=== PATIENT | male | born 1990 | race African-American/Black ===

== ENCOUNTER 2018-02-27 08:15 | Emergency (ER) | payer SELFPAY ==
[2018-02-27] MEDS ORDERED: ONDANSETRON 4 MG (ODT) TAB ONE (08:44)
[2018-02-27] MEDS ORDERED: IBUPROFEN 400 MG TAB ONE (08:44)
--- NOTE | 2018-02-27 09:49 | EDPHYS ---
Physician Documentation [facility] Name: Alexandra Monroy Age: 28 yrs Sex: Male : 1990 Arrival Date: 02/27/2018 Time: 08:19 Bed 15 Private MD: None, None ED Physician Denis Castellano HPI: 02/27 08:34 This 28 yrs old Black Male presents to ER via Ambulatory with complaints of Abdominal cp Pain, Nausea/Vomiting, Fever. 08:34 The patient presents with sore throat. cp 08:34 The patient describes throat pain as constant. cp 08:34 Onset: The symptoms/episode began/occurred 2 day(s) ago. cp 08:34 Severity of symptoms: in the emergency department the symptoms are unchanged, despite cp home interventions. Associated signs and symptoms: Pertinent positives: fever, nausea, Sore throat vomiting, abdominal pain. Historical: - Allergies: 08:25 No Known Allergies; ss - Home Meds: 08:25 None [Active]; ss - PMHx: 08:25 None; ss - PSHx: 08:25 None; ss - Immunization history:: Adult Immunizations up to date. - Social history:: Smoking status: Patient/guardian denies using tobacco. - Ebola Screening: : Patient denies exposure to infectious person Patient denies travel to an Ebola-affected area in the 21 days before illness onset. ROS: 08:37 Constitutional: Negative for body aches, chills, fever, poor PO intake. cp 08:37 Eyes: Negative for injury, pain, redness, and discharge. cp 08:37 ENT: Positive for sore throat, Negative for drainage from ear(s), ear pain, rhinorrhea, difficulty swallowing, difficulty handling secretions. 08:37 Neck: Negative for pain with movement, pain at rest, stiffness. 08:37 Cardiovascular: Negative for chest pain. 08:37 Respiratory: Negative for cough, wheezing. 08:37 Abdomen/GI: Positive for abdominal pain, nausea and vomiting, Negative for diarrhea, constipation, black/tarry stool, rectal bleeding. 08:37 Back: Negative for pain at rest, pain with movement, radiated pain. 08:37 : Negative for urinary symptoms. 08:37 Skin: Negative for cellulitis, rash. 08:37 Neuro: Negative for altered mental status, weakness. 08:37 All other systems are negative. Exam: 08:42 Constitutional: The patient appears in no acute distress, alert, awake, non-toxic, well cp developed, well nourished. 08:42 Head/Face: Normocephalic, atraumatic. cp 08:42 Eyes: Periorbital structures: appear normal, Pupils: equal, round, and reactive to light and accomodation, Extraocular movements: intact throughout, Conjunctiva: normal, no exudate, no injection, Sclera: no appreciated abnormality, Lids and lashes: appear normal, bilaterally. 08:42 ENT: External ear(s): are unremarkable, Ear canal(s): are normal, clear, TM's: bulging, is not appreciated, bilaterally, dullness, bilaterally, erythema, is not appreciated, bilaterally, Nose: is normal, Mouth: Lips: moist, Oral mucosa: moist, Posterior pharynx: Airway: no evidence of obstruction, patent, Tonsils: bilaterally enlarged, with erythema, with exudate, Uvula: midline, swelling, is not appreciated, erythema, that is mild. 08:42 Neck: ROM/movement: is normal, is supple, without pain, no range of motions limitations, no meningismus, no nuchal rigidity, Lymph nodes: lymphadenopathy is appreciated, anterior cervical nodes. 08:42 Chest/axilla: Inspection: normal, Palpation: is normal, no crepitus, no tenderness. 08:42 Cardiovascular: Rate: normal, Rhythm: regular. 08:42 Respiratory: the patient does not display signs of respiratory distress, Respirations: normal, no use of accessory muscles, no retractions, no splinting, no tachypnea, labored breathing, is not present, Breath sounds: are clear throughout, no decreased breath sounds, no stridor, no wheezing. 08:42 Abdomen/GI: Inspection: abdomen appears normal, Bowel sounds: active, all quadrants, Palpation: soft, in all quadrants, mild abdominal tenderness, in the epigastric area, rebound tenderness, is not appreciated, voluntary guarding, is not appreciated, involuntary guarding, is not appreciated. 08:42 Back: pain, is absent, ROM is normal. 08:42 Skin: cellulitis, is not appreciated, no rash present. 08:42 Neuro: Orientation: to person, place \T\ time. Mentation: lucid, able to follow commands. Vital Signs: 08:25 BP 117 / 72; Pulse 99; Resp 15; Temp 99.2(O); Pulse Ox 97% on R/A; Weight 72.57 kg; ss Height 5 ft. 5 in. (165.10 cm); Pain 5/10; 09:48 BP 96 / 77; Pulse 97; Resp 17; Pulse Ox 97% on R/A; mh5 09:55 BP 110 / 65; Pulse 89; Resp 17; Pulse Ox 96% on R/A; Pain 2/10; rb1 08:25 Body Mass Index 26.63 (72.57 kg, 165.10 cm) ss MDM: 08:21 Patient medically screened. cp 09:47 Data reviewed: vital signs, nurses notes, lab test result(s), and as a result, I will cp discharge patient. 09:47 Differential diagnosis: apthous ulcer, group A strep tonsillitis, laryngitis, niki's cp angina, peritonsillar abscess pharyngitis, retropharyngeal abcess. Counseling: I had a detailed discussion with the patient and/or guardian regarding: the historical points, exam findings, and any diagnostic results supporting the discharge/admit diagnosis, to return to the emergency department if symptoms worsen or persist or if there are any questions or concerns that arise at home. Response to treatment: the patient's symptoms have markedly improved after treatment, VSS. Nausea and pain improved. No vomiting observed in ED, and as a result, I will discharge patient. 02/27 08:34 Order name: Strep; Complete Time: 09:53 cp 02/27 09:53 Interpretation: Reviewed. cp Administered Medications: 08:42 Drug: Zofran 4 mg Route: PO; rb1 09:10 Follow up: Response: No adverse reaction; Nausea is decreased rb1 08:42 Drug: Ibuprofen 800 mg Route: PO; rb1 09:10 Follow up: Response: No adverse reaction; Pain is decreased rb1 09:49 Drug: Augmentin 875 mg Route: PO; rb1 09:55 Follow up: Response: No adverse reaction; Medication administered at discharge. rb1 Disposition: 11:23 Co-signature as Attending Physician, Denis Castellano MD I agree with the assessment and kdr plan of care. Disposition: 02/27/18 09:48 Discharged to Home. Impression: Streptococcal tonsillitis, Nausea and vomiting. - Condition is Stable. - Discharge Instructions: Nausea and Vomiting, Adult, Tonsillitis. - Prescriptions for Augmentin 875- 125 mg Oral Tablet - take 1 tablet by ORAL route every 12 hours for 10 days; 20 tablet. Zofran 4 mg Oral Tablet - take 1 tablet by ORAL route every 12 hours As needed; 20 tablet. Ibuprofen 800 mg Oral Tablet - take 1 tablet by ORAL route every 8 hours As needed take with food; 30 tablet. - Medication Reconciliation Form, Thank You Letter, Antibiotic Education, Prescription Opioid Use form. - Follow up: Private Physician; When: 48 Hours; Reason: Recheck today's complaints. - Problem is new. - Symptoms have improved. Signatures: Dispatcher [employer] EDMS Denis Castellano MD MD kdr Carey Hall RN RN ss Hank Venegas PA PA Marie Tovar RN RN rb1 Corrections: (The following items were deleted from the chart) 09:56 09:48 02/27/2018 09:48 Discharged to Home. Impression: Streptococcal tonsillitis; rb1 Nausea and vomiting. Condition is Stable. Forms are Medication Reconciliation Form, Thank You Letter, Antibiotic Education, Prescription Opioid Use. Follow up: Private Physician; When: 48 Hours; Reason: Recheck today's complaints. Problem is new. Symptoms have improved. cp 23:02/26 08:40 Constitutional: The patient appears in no acute distress, alert, awake, cp non-toxic, well developed, well nourished, cp 02/27 23:02/26 08:40 Head/Face: Normocephalic, atraumatic. cp cp 02/27 23:02/26 08:40 Eyes: Periorbital structures: appear normal, Conjunctiva: normal, no cp exudate, no injection, Sclera: no appreciated abnormality, Lids and lashes: appear normal, bilaterally, cp / 23:26 02/26 08:40 ENT: External ear(s): are unremarkable, Ear canal(s): are normal, clear, cp TM's: bulging, is not appreciated, bilaterally, dullness, bilaterally, erythema, is not appreciated, bilaterally, Nose: is normal, Mouth: Lips: moist, Oral mucosa: moist, Posterior pharynx: Airway: no evidence of obstruction, patent, Tonsils: bilaterally enlarged, with erythema, with exudate, Uvula: midline, swelling, is not appreciated, erythema, that is mild, Voice: is normal, cp 02/27 23:02/26 08:40 Neck: ROM/movement: is normal, is supple, without pain, no range of motions cp limitations, no meningismus, no nuchal rigidity, Lymph nodes: lymphadenopathy is appreciated, anterior cervical nodes, cp 02/27 23:02/26 08:40 Chest/axilla: Inspection: normal, Palpation: is normal, no crepitus, no cp tenderness, cp 02/27 23:02/26 08:40 Cardiovascular: Rate: normal, Rhythm: regular, cp cp 02/27 23:02/26 08:40 Respiratory: the patient does not display signs of respiratory distress, cp Respirations: normal, no use of accessory muscles, no retractions, no splinting, no tachypnea, labored breathing, is not present, Breath sounds: are clear throughout, no decreased breath sounds, no stridor, no wheezing, cp 02/27 23:02/26 08:40 Abdomen/GI: Inspection: abdomen appears normal, Bowel sounds: active, all cp quadrants, Palpation: soft, in all quadrants, mild abdominal tenderness, in the epigastric area, rebound tenderness, is not appreciated, voluntary guarding, is not appreciated, involuntary guarding, is not appreciated, cp 02/27 23:02/26 08:40 Back: pain, is absent, ROM is normal, cp cp 02/27 23:02/26 08:40 Skin: cellulitis, is not appreciated, no rash present. cp cp 02/27 23:02/26 08:40 Neuro: Orientation: to person, place \T\ time. Mentation: is normal, cp cp
--- NOTE | 2018-02-27 09:49 | ER ---
Nurse's Notes [facility] Name: Alexandra Monroy Age: 28 yrs Sex: Male : 1990 Arrival Date: 02/27/2018 Time: 08:19 Bed 15 Private MD: None, None Diagnosis: Streptococcal tonsillitis;Nausea and vomiting Presentation: 02/27 08:24 Presenting complaint: Patient states: sore throat, N/V and fever x 2 days. Transition ss of care: patient was not received from another setting of care. Onset of symptoms was February 25, 2018. Risk Assessment: Do you want to hurt yourself or someone else? Patient reports no desire to harm self or others. Initial Sepsis Screen: Does the patient meet any 2 criteria? No. Patient's initial sepsis screen is negative. Does the patient have a suspected source of infection? No. Patient's initial sepsis screen is negative. Care prior to arrival: None. 08:24 Method Of Arrival: Ambulatory ss 08:24 Acuity: CHARLA 4 ss Historical: - Allergies: 08:25 No Known Allergies; ss - Home Meds: 08:25 None [Active]; ss - PMHx: 08:25 None; ss - PSHx: 08:25 None; ss - Immunization history:: Adult Immunizations up to date. - Social history:: Smoking status: Patient/guardian denies using tobacco. - Ebola Screening: : Patient denies exposure to infectious person Patient denies travel to an Ebola-affected area in the 21 days before illness onset. Screenin:27 Abuse screen: Denies threats or abuse. Nutritional screening: No deficits noted. rb1 Tuberculosis screening: No symptoms or risk factors identified. Fall Risk None identified. Assessment: 08:27 General: Appears in no apparent distress. comfortable, Behavior is calm, cooperative, rb1 Reports fever for 1-2 days. Pain: Complains of pain in abdomen Pain currently is 4 out of 10 on a pain scale. Quality of pain is described as pain started after the pt. vomited. Neuro: Level of Consciousness is awake, alert, obeys commands, Oriented to person, place, time, situation. Cardiovascular: Capillary refill < 3 seconds is brisk in bilateral fingers. Respiratory: Airway is patent Respiratory effort is even, unlabored, Respiratory pattern is regular, symmetrical. GI: Bowel sounds present X 4 quads. Abd is soft X 4 quads Reports diarrhea, nausea, vomiting, since x 2 days. : No signs and/or symptoms were reported regarding the genitourinary system. Derm: Skin is dry, Skin is normal, Skin temperature is warm. 09:25 Reassessment: Patient appears in no apparent distress at this time. No changes from rb1 previously documented assessment. Vital Signs: 08:25 BP 117 / 72; Pulse 99; Resp 15; Temp 99.2(O); Pulse Ox 97% on R/A; Weight 72.57 kg; ss Height 5 ft. 5 in. (165.10 cm); Pain 5/10; 09:48 BP 96 / 77; Pulse 97; Resp 17; Pulse Ox 97% on R/A; mh5 09:55 BP 110 / 65; Pulse 89; Resp 17; Pulse Ox 96% on R/A; Pain 2/10; rb1 08:25 Body Mass Index 26.63 (72.57 kg, 165.10 cm) ED Course: 08:19 Patient arrived in ED. sb2 08:20 None, None is Private Physician. sb2 08:21 Hank Venegas PA is PHCP. cp 08:21 Denis Castellano MD is Attending Physician. cp 08:25 Triage completed. ss 08:25 Arm band placed on right wrist. ss 08:27 Marie Paige, RN is Primary Nurse. rb1 08:27 Patient has correct armband on for positive identification. Bed in low position. Call rb1 light in reach. Side rails up X 1. Pulse ox on. NIBP on. 08:42 Strep Sent. rb1 09:55 No provider procedures requiring assistance completed. Patient did not have IV access rb1 during this emergency room visit. Administered Medications: 08:42 Drug: Zofran 4 mg Route: PO; rb1 09:10 Follow up: Response: No adverse reaction; Nausea is decreased rb1 08:42 Drug: Ibuprofen 800 mg Route: PO; rb1 09:10 Follow up: Response: No adverse reaction; Pain is decreased rb1 09:49 Drug: Augmentin 875 mg Route: PO; rb1 09:55 Follow up: Response: No adverse reaction; Medication administered at discharge. rb1 Outcome: 09:48 Discharge ordered by . cp 09:55 Discharged to home ambulatory, with family. rb1 09:55 Condition: stable 09:55 Discharge instructions given to patient, Instructed on discharge instructions, follow up and referral plans. medication usage, Demonstrated understanding of instructions, follow-up care, medications, Prescriptions given X 3. 09:56 Patient left the ED. rb1 Signatures: Carey Hall, RN RN ss Hank Venegas PA PA cp Barber, Rebecca, RN RN rb1 [facility] Judy Weiss [facility]
[2018-02-27] MEDS ORDERED: AMOX/K CLAV 875 MG TAB ONE (09:51)
== END 2018-02-27 09:56 | disposition home or self-care (01) ==
LOC: ER 08:15
DX: J03.00 Acute streptococcal tonsillitis, unspecified (principal); R11.2 Nausea with vomiting, unspecified
CPT/HCPCS: 87081; 99284

== ENCOUNTER 2019-01-19 21:20 | Emergency (ER) | payer SELFPAY ==
--- NOTE | 2019-01-19 21:58 | EDPHYS ---
Physician Documentation [facility] Name: Alexandra Monroy Age: 28 yrs Sex: Male : 1990 Arrival Date: 01/19/2019 Time: 21:23 Bed 20 Private MD: ED Physician Hank Crystal HPI: 01/19 21:52 This 28 yrs old Black Male presents to ER via Ambulatory with complaints of Fever, snw Headache, Sore Throat. 21:52 The patient reports fever, not measured (subjective). Onset: The symptoms/episode snw began/occurred suddenly, 1 day(s) ago, and became persistent. Associated signs and symptoms: Pertinent positives: headache, sore throat. Severity of symptoms: At their worst the symptoms were moderate. The patient has not experienced similar symptoms in the past. It is unknown whether or not the patient has recently seen a physician. Historical: - Allergies: 21:27 No Known Allergies; aa1 - Home Meds: 21:27 None [Active]; aa1 - PMHx: 21:27 None; aa1 - PSHx: 21:27 None; aa1 - Immunization history:: Flu vaccine is not up to date. - Social history:: Smoking status: Patient/guardian denies using tobacco. - Ebola Screening: : Patient denies exposure to infectious person Patient denies travel to an Ebola-affected area in the 21 days before illness onset. ROS: 21:51 Constitutional: Negative for fever, chills, and weight loss, Eyes: Negative for injury, snw pain, redness, and discharge, ENT: Negative for injury and discharge, + sore throat Neck: Negative for injury, pain, and swelling, Cardiovascular: Negative for chest pain, palpitations, and edema, Respiratory: Negative for shortness of breath, cough, wheezing, and pleuritic chest pain, Abdomen/GI: Negative for abdominal pain, nausea, vomiting, diarrhea, and constipation, Back: Negative for injury and pain, : Negative for injury, bleeding, discharge, and swelling, MS/Extremity: Negative for injury and deformity, Skin: Negative for injury, rash, and discoloration, Neuro: Negative for headache, weakness, numbness, tingling, and seizure, Psych: Negative for depression, anxiety, suicide ideation, homicidal ideation, and hallucinations. Exam: 21:50 Constitutional: This is a well developed, well nourished patient who is awake, alert, snw and in no acute distress. Head/Face: Normocephalic, atraumatic. Eyes: Pupils equal round and reactive to light, extra-ocular motions intact. Lids and lashes normal. Conjunctiva and sclera are non-icteric and not injected. Cornea within normal limits. Periorbital areas with no swelling, redness, or edema. Neck: Trachea midline, no thyromegaly or masses palpated, and no cervical lymphadenopathy. Supple, full range of motion without nuchal rigidity, or vertebral point tenderness. No Meningismus. Chest/axilla: Normal chest wall appearance and motion. Nontender with no deformity. No lesions are appreciated. Cardiovascular: Tachycardic rate and rhythm with a normal S1 and S2. No gallops, murmurs, or rubs. Normal PMI, no JVD. No pulse deficits. Respiratory: Lungs have equal breath sounds bilaterally, clear to auscultation and percussion. No rales, rhonchi or wheezes noted. No increased work of breathing, no retractions or nasal flaring. Abdomen/GI: Soft, non-tender, with normal bowel sounds. No distension or tympany. No guarding or rebound. No evidence of tenderness throughout. Back: No spinal tenderness. No costovertebral tenderness. Full range of motion. Skin: Warm, dry with normal turgor. Normal color with no rashes, no lesions, and no evidence of cellulitis. MS/ Extremity: Pulses equal, no cyanosis. Neurovascular intact. Full, normal range of motion. Neuro: Awake and alert, GCS 15, oriented to person, place, time, and situation. Cranial nerves II-XII grossly intact. Motor strength 5/5 in all extremities. Sensory grossly intact. Cerebellar exam normal. Normal gait. Psych: Awake, alert, with orientation to person, place and time. Behavior, mood, and affect are within normal limits. 21:50 ENT: External ear(s): are unremarkable, Ear canal(s): are normal, Nose: is normal, Mouth: is normal, Posterior pharynx: swelling, that is moderate, erythema, that is moderate, exudate, that is moderate, Voice: is normal. Vital Signs: 21:27 BP 114 / 75; Pulse 103; Resp 20; Temp 101.5; Pulse Ox 98% on R/A; Weight 72.57 kg; aa1 Height 5 ft. 5 in. (165.10 cm); Pain 5/10; 22:29 BP 117 / 81; Pulse 97; Resp 20; Temp 100.2(O); Pulse Ox 100% on R/A; Pain 5/10; ed1 21:27 Body Mass Index 26.63 (72.57 kg, 165.10 cm) aa1 MDM: 21:24 Patient medically screened. snw 21:59 Data reviewed: vital signs, nurses notes. Data interpreted: Pulse oximetry: on room air snw is 98 %. Interpretation: normal. Counseling: I had a detailed discussion with the patient and/or guardian regarding: the historical points, exam findings, and any diagnostic results supporting the discharge/admit diagnosis, lab results, the need for outpatient follow up, for definitive care. Response to treatment: There is no appreciated change of the patient's symptoms at this time. Special discussion: Based on the history and exam findings, there is no indication for further emergent testing or inpatient evaluation. I discussed with the patient/guardian the need to see the primary care provider for further evaluation of the symptoms. 01/19 21:24 Order name: Strep; Complete Time: 21:55 snw 01/19 21:56 Order name: Throat Culture EDMS Administered Medications: 22:13 Drug: Decadron - Dexamethasone 10 mg {Note: Given PO per order.} Route: IVP; Site: ed1 Other; 22:33 Follow up: Response: No adverse reaction ed1 22:14 Drug: Lortab Liquid 10 ml Route: PO; ed1 22:33 Follow up: Response: No adverse reaction ed1 22:14 Drug: Bicillin L-A 2.4 million units Route: IM; Site: left ventrogluteal; ed1 22:33 Follow up: Response: No adverse reaction ed1 Disposition: 01/20 06:54 Co-signature as Attending Physician, Hank Crystal MD I agree with the assessment and rehana plan of care. Disposition: 01/19/19 21:57 Discharged to Home. Impression: Acute pharyngitis. - Condition is Stable. - Discharge Instructions: Fever, Adult, Pharyngitis, Rehydration, Adult. - Prescriptions for Prednisone 20 mg Oral Tablet - take 1 tablet by ORAL route once daily for 5 days; 5 tablet. - Work release form, Medication Reconciliation Form, Thank You Letter, Antibiotic Education, Prescription Opioid Use form. - Follow up: Emergency Department; When: As needed; Reason: Worsening of condition. Follow up: Private Physician; When: 2 - 3 days; Reason: Recheck today's complaints, Continuance of care, Re-evaluation by your physician. Signatures: Dispatcher [employer] EDMS Wendi Ochoa RN RN aa1 Hank Crystal MD MD cha Therrien, Shelly, CREATIVE COORDINATOR-C CREATIVE COORDINATOR-Csnw Bing Lyons RN RN ed1 Corrections: (The following items were deleted from the chart) 01/19 22:33 21:57 01/19/2019 21:57 Discharged to Home. Impression: Acute pharyngitis. Condition is ed1 Stable. Forms are Medication Reconciliation Form, Thank You Letter, Antibiotic Education, Prescription Opioid Use. Follow up: Emergency Department; When: As needed; Reason: Worsening of condition. Follow up: Private Physician; When: 2 - 3 days; Reason: Recheck today's complaints, Continuance of care, Re-evaluation by your physician. snw
--- NOTE | 2019-01-19 21:58 | ER ---
Nurse's Notes [facility] Name: Alexandra Monroy Age: 28 yrs Sex: Male : 1990 Arrival Date: 01/19/2019 Time: 21:23 Bed 20 Private MD: Diagnosis: Acute pharyngitis Presentation: 01/19 21:26 Presenting complaint: Patient states: fever, sore throat, \T\ headache since yesterday. aa1 Transition of care: patient was not received from another setting of care. Onset of symptoms was January 18, 2019. Risk Assessment: Do you want to hurt yourself or someone else? Patient reports no desire to harm self or others. Initial Sepsis Screen: Does the patient meet any 2 criteria? Temp <36.0*C (96.8*F)) or > 38.3*C (100.9*F). Does the patient have a suspected source of infection? No. Patient's initial sepsis screen is negative. Care prior to arrival: None. 21:26 Method Of Arrival: Ambulatory aa1 21:26 Acuity: CHARLA 4 aa1 Triage Assessment: 21:27 General: Appears in no apparent distress. uncomfortable, Behavior is calm, cooperative, aa1 appropriate for age. Historical: - Allergies: 21:27 No Known Allergies; aa1 - Home Meds: 21:27 None [Active]; aa1 - PMHx: 21:27 None; aa1 - PSHx: 21:27 None; aa1 - Immunization history:: Flu vaccine is not up to date. - Social history:: Smoking status: Patient/guardian denies using tobacco. - Ebola Screening: : Patient denies exposure to infectious person Patient denies travel to an Ebola-affected area in the 21 days before illness onset. Screenin:30 Abuse screen: Denies threats or abuse. Denies injuries from another. Nutritional ed1 screening: No deficits noted. Tuberculosis screening: No symptoms or risk factors identified. Fall Risk None identified. Assessment: 21:30 General: Appears uncomfortable, Behavior is calm, cooperative. Pain: Complains of pain ed1 in throat Pain currently is 5 out of 10 on a pain scale. Quality of pain is described as burning, Pain began 2-3 days ago. Neuro: Level of Consciousness is awake, alert, obeys commands, Oriented to person, place, time, situation, Reports headache in entire frontal area. Cardiovascular: Denies chest pain, Heart tones S1 S2 present. Respiratory: Airway is patent Respiratory effort is even, unlabored, Respiratory pattern is regular, symmetrical, Breath sounds are clear bilaterally. GI: No signs and/or symptoms were reported involving the gastrointestinal system. : No signs and/or symptoms were reported regarding the genitourinary system. EENT: Throat is reddened has enlarged tonsils bilaterally. Derm: Skin is intact, is healthy with good turgor, Skin is dry, Skin is normal, Skin temperature is warm. Musculoskeletal: Circulation, motion, and sensation intact. Range of motion: intact in all extremities. 22:29 Reassessment: Patient appears in no apparent distress at this time. No changes from ed1 previously documented assessment. Patient and/or family updated on plan of care and expected duration. Pain level reassessed. Patient is alert, oriented x 3, equal unlabored respirations, skin warm/dry/pink. Patient states symptoms have not improved. Vital Signs: 21:27 BP 114 / 75; Pulse 103; Resp 20; Temp 101.5; Pulse Ox 98% on R/A; Weight 72.57 kg; aa1 Height 5 ft. 5 in. (165.10 cm); Pain 5/10; 22:29 BP 117 / 81; Pulse 97; Resp 20; Temp 100.2(O); Pulse Ox 100% on R/A; Pain 5/10; ed1 21:27 Body Mass Index 26.63 (72.57 kg, 165.10 cm) aa1 ED Course: 21:23 Patient arrived in ED. es 21:24 Lakisha Kinney FNP-C is PHCP. snw 21:24 Hank Crystal MD is Attending Physician. snw 21:26 Triage completed. aa1 21:27 Arm band placed on left wrist. Patient placed in an exam room, on a stretcher. aa1 21:29 Bing Lyons, DERREK is Primary Nurse. ed1 21:30 Patient has correct armband on for positive identification. Bed in low position. Call ed1 light in reach. Adult w/ patient. 21:42 Strep swab sent to lab. ag4 22:29 No provider procedures requiring assistance completed. Patient did not have IV access ed1 during this emergency room visit. Administered Medications: 22:13 Drug: Decadron - Dexamethasone 10 mg {Note: Given PO per order.} Route: IVP; Site: ed1 Other; 22:33 Follow up: Response: No adverse reaction ed1 22:14 Drug: Lortab Liquid 10 ml Route: PO; ed1 :33 Follow up: Response: No adverse reaction ed1 22:14 Drug: Bicillin L-A 2.4 million units Route: IM; Site: left ventrogluteal; ed1 22:33 Follow up: Response: No adverse reaction ed1 Outcome: 21:57 Discharge ordered by MD. snow 22:29 Discharged to home ambulatory, with family. ed1 22:29 Condition: good 22:29 Discharge instructions given to patient, Instructed on discharge instructions, follow up and referral plans. medication usage, Demonstrated understanding of instructions, follow-up care, medications, Prescriptions given X 1. 22:33 Patient left the ED. ed1 Signatures: Wendi Ochoa RN RN aa1 Lakisha Kinney, STOCK PREPARER-C STOCK PREPARER-[facility] [place] Erika, RN RN ed1 Fabián Gonzalez ag4
[2019-01-19] MEDS ORDERED: DEXAMETHASONE 10 MG/ML VIAL ONE (22:19)
[2019-01-19] MEDS ORDERED: PEN G BENZ LA 2.4 MU/4 ML SYRINGE IM ONE (22:20)
[2019-01-19] MEDS ORDERED: HYDROCOD 2.5mg-ACETAMIN 108mg/5mL Soln ONE (22:20)
== END 2019-01-19 22:33 | disposition home or self-care (01) ==
LOC: ER 21:20
DX: J02.9 Acute pharyngitis, unspecified (principal)
CPT/HCPCS: 87070; 87081; 96372; 96374; 99283; J0561; J1100

== ENCOUNTER 2021-01-12 13:54 | Emergency (ER) | payer SELFPAY ==
--- OUTSIDE RECORDS SUMMARY | 2021-01-12 13:57 | XMS REPORT | Continuity of Care Document ---
:1990 Author Organization [facility] t Address [address] [place] [address] [address] [place] [address] Care Team Providers Name Role Phone Jose Alberto ASIF, Jay Mckeon Attending Clinician Problems This patient has no known problems. Allergies, Adverse Reactions, Alerts This patient has no known allergies or adverse reactions. Medications This patient has no known medications. Procedures This patient has no known procedures. Encounters Start End Encounter Admission Attending Care Care Encounter Source Date/Time Date/Time Type Type Clinicians Facility Department ID 2019-09-18 2019-09-18 Emergency VIRAL Abrams [id number] 04:38:41 06:12:00 Jay Devries [id number] [place] [id number] [place] [id number] Results This patient has no known results.
--- NOTE | 2021-01-12 16:11 | ER ---
Nurse's Notes [facility] Name: Alexandra Monroy Age: 30 yrs Sex: Male : 1990 Arrival Date: 01/12/2021 Time: 13:56 Bed 25 Private MD: Diagnosis: Impacted cerumen, right ear Presentation: 01/12 14:10 Chief complaint: Patient states: went swimming on Saturday and woke up the next morning tw2 and couldn't hear anything out of right ear , denies pain, still can't hear anything out of ear. Coronavirus screen: Client denies travel out of the [place] in the last 14 days. Client indicates they have traveled out of the [place] in the last 14 days. At this time, unable to obtain information related to travel outside the [place] Ebola Screen: Patient negative for fever greater than or equal to 101.5 degrees Fahrenheit, and additional compatible Ebola Virus Disease symptoms Patient denies exposure to infectious person. Patient denies travel to an Ebola-affected area in the 21 days before illness onset. No symptoms or risks identified at this time. Initial Sepsis Screen: Does the patient meet any 2 criteria? No. Patient's initial sepsis screen is negative. Does the patient have a suspected source of infection? No. Patient's initial sepsis screen is negative. Risk Assessment: Do you want to hurt yourself or someone else? Patient reports no desire to harm self or others. Onset of symptoms was January 08, 2021. 14:10 Method Of Arrival: Ambulatory tw2 14:10 Acuity: CHARLA 4 tw2 Triage Assessment: 14:10 General: Appears in no apparent distress. Behavior is calm, cooperative, appropriate tw2 for age. 15:26 Pain: Complains of pain in right ear. tw2 Historical: - Allergies: 14:12 No Known Allergies; tw2 - Home Meds: 14:12 None [Active]; tw2 - PMHx: 14:12 None; tw2 - PSHx: 14:12 None; tw2 - Immunization history:: Client reports having NOT received the Covid vaccine. - Social history:: Smoking status: Patient denies any tobacco usage or history of. Screenin:26 Abuse screen: Denies threats or abuse. Nutritional screening: No deficits noted. tw2 Tuberculosis screening: No symptoms or risk factors identified. Fall Risk None identified. Assessment: 15:29 General: Appears in no apparent distress. comfortable. Pain: Denies pain. Neuro: Level ap3 of Consciousness is awake, alert, obeys commands, Oriented to person, place, time, situation, Appropriate for age. Cardiovascular: Denies chest pain, shortness of breath, Capillary refill < 3 seconds. Respiratory: Airway is patent Respiratory effort is even, unlabored, Respiratory pattern is regular, symmetrical. GI: No signs and/or symptoms were reported involving the gastrointestinal system. : No signs and/or symptoms were reported regarding the genitourinary system. EENT: Reports decreased hearing in right ear. Vital Signs: 14:10 BP 119 / 72; Pulse 72; Resp 16; Temp 99.2; Pulse Ox 99% on R/A; Weight 72.57 kg; Height tw2 5 ft. 5 in. (165.10 cm); 15:30 BP 115 / 72; Pulse 68; Resp 17; Pulse Ox 100% on R/A; Pain 0/10; ap3 14:10 Body Mass Index 26.63 (72.57 kg, 165.10 cm) tw2 ED Course: 13:56 Patient arrived in ED. as 14:10 Arm band placed on. tw2 14:12 Triage completed. tw2 15:17 Hank Venegas PA is PHCP. cp 15:17 Denis Castellano MD is Attending Physician. cp 15:26 Bed in low position. Call light in reach. Pulse ox on. NIBP on. tw2 15:28 Jesica Minaya RN is Primary Nurse. ap3 16:11 Tala Randall MD is Referral Physician. cp 16:12 flushing of right ear. ap3 16:12 Patient did not have IV access during this emergency room visit. ap3 Administered Medications: No medications were administered Outcome: 16:11 Discharge ordered by . cp 16:18 Discharged to home ambulatory. ap3 16:18 Condition: good 16:18 Discharge instructions given to patient, Instructed on discharge instructions, follow up and referral plans. Demonstrated understanding of instructions, follow-up care. 16:18 Patient left the ED. ap3 Signatures: Caryn Holbrook as Hank Venegas PA PA cp Leticia Mclaughlin RN RN tw2 Prokisch, Jesica, RN RN ap3 Corrections: (The following items were deleted from the chart) 15:26 14:10 Pain: Complains of pain in right ear and left ear tw2 tw2
--- NOTE | 2021-01-12 16:12 | EDPHYS ---
Physician Documentation [facility] Name: Alexandra Monroy Age: 30 yrs Sex: Male : 1990 Arrival Date: 01/12/2021 Time: 13:56 Bed 25 Private MD: ED Physician Denis Castellano HPI: 01/12 15:34 This 30 yrs old Black Male presents to ER via Ambulatory with complaints of Ear Problem.cp 15:35 The patient presents with hearing loss, partial. The complaints affect the right ear. cp Onset: The symptoms/episode began/occurred this week. Associated signs and symptoms: Pertinent negatives: fever, rhinorrhea, sinus trouble, sore throat, ear pain. Historical: - Allergies: 14:12 No Known Allergies; tw2 - Home Meds: 14:12 None [Active]; tw2 - PMHx: 14:12 None; tw2 - PSHx: 14:12 None; tw2 - Immunization history:: Client reports having NOT received the Covid vaccine. - Social history:: Smoking status: Patient denies any tobacco usage or history of. ROS: 15:35 Constitutional: Negative for fever. cp 15:35 ENT: Positive for hearing loss, Negative for drainage from ear(s), ear pain, sore throat, difficulty swallowing, difficulty handling secretions. 15:35 All other systems are negative. Exam: 15:36 Head/Face: Normocephalic, atraumatic. cp 15:36 Constitutional: The patient appears in no acute distress, alert, awake, non-toxic, well developed, well nourished. 15:36 Eyes: Periorbital structures: appear normal, Conjunctiva: normal, no exudate, no injection, Lids and lashes: appear normal, bilaterally. 15:36 ENT: External ear(s): are unremarkable, Ear canal(s): cerumen impaction, that is moderate, occluding the right ear canal, Examination of the other ear shows no obvious abnormality, Nose: is normal, Mouth: Lips: moist, Oral mucosa: moist, Posterior pharynx: Airway: no evidence of obstruction, patent. 15:36 Chest/axilla: Inspection: normal. 15:36 Cardiovascular: Rate: normal. Vital Signs: 14:10 BP 119 / 72; Pulse 72; Resp 16; Temp 99.2; Pulse Ox 99% on R/A; Weight 72.57 kg; Height tw2 5 ft. 5 in. (165.10 cm); 15:30 BP 115 / 72; Pulse 68; Resp 17; Pulse Ox 100% on R/A; Pain 0/10; ap3 14:10 Body Mass Index 26.63 (72.57 kg, 165.10 cm) tw2 Procedures: 16:15 Ear irrigation: Route right ear with Other warm water amount Other 60 ccs Patient cp tolerated well impacted cerumen removed. MDM: 15:24 Patient medically screened. cp 16:00 Differential diagnosis: otitis media, otitis externa, ruptured TM, foreign body, cp cerumen impaction. 16:10 Data reviewed: vital signs, nurses notes, and as a result, I will discharge patient. cp Administered Medications: No medications were administered Disposition: 16:25 Chart complete. cp 01/13 07:16 Co-signature as Attending Physician, Denis Castellano MD I agree with the assessment and kdr plan of care. Disposition: 01/12/21 16:11 Discharged to Home. Impression: Impacted cerumen, right ear. - Condition is Stable. - Discharge Instructions: Earwax Buildup, Adult. - Medication Reconciliation Form, Thank You Letter, Antibiotic Education, Prescription Opioid Use, Work release form form. - Follow up: Tala Randall MD; When: 2 - 3 days; Reason: Worsening of condition. - Problem is new. - Symptoms have improved. Signatures: Denis Castellano MD MD [facility] Hank Venegas PA PA cp Letciia Mclaughlin RN RN tw2 Jesica Minaya RN RN ap3 Corrections: (The following items were deleted from the chart) 01/12 16:18 16:11 01/12/2021 16:11 Discharged to Home. Impression: Impacted cerumen, right ear. ap3 Condition is Stable. Forms are Work release form, Medication Reconciliation Form, Thank You Letter, Antibiotic Education, Prescription Opioid Use. Follow up: Tala Randall; When: 2 - 3 days; Reason: Worsening of condition. Problem is new. Symptoms have improved. cp
[2021-01-12 16:23] VITALS: TEMP 99.2
[2021-01-12 16:24] VITALS: BP 115/72; O2SAT 100
== END 2021-01-12 16:18 | disposition home or self-care (01) ==
LOC: ER 13:54
DX: H61.21 Impacted cerumen, right ear (principal)